=== PATIENT | male | born 1980 | race Caucasian/White ===

== ENCOUNTER 2022-10-23 10:54 | Emergency (ER) | payer BC ==
[2022-10-23] MEDS ORDERED: Sodium Chloride 0.9% 10 ML Syringe FLUSH PRN (10:59)
[2022-10-23] MEDS ORDERED: Sodium Chloride 0.9% 1,000 ML IV ONE (10:59)
[2022-10-23] MEDS ORDERED: Sodium Chloride 0.9% 2.5 ML Syringe FLUSH PRN (10:59)
[2022-10-23 11:58] LABS: CORONAVIRUS COVID-19 NAA POSITIVE (NEGATIVE); INFLUENZA A NAA NEGATIVE (NEGATIVE); INFLUENZA B NAA NEGATIVE (NEGATIVE)
[2022-10-23 12:46] LABS: BLOOD UREA NITROGEN,BUN 16 mg/dL (7.0-18.0); CARBON DIOXIDE,CO2 29.9 mmol/L (21.0-32.0); CHLORIDE,CL 108 mmol/L (98-107); GLUCOSE RANDOM 97 mg/dL (74-106); POTASSIUM,K 4.6 mmol/L (3.5-5.1); SODIUM,NA 141 mmol/L (136-148)
[2022-10-23 12:49] LABS: ESTIMATED GFR 96 mL/min (>60)
== END 2022-10-23 13:16 | disposition home or self-care (01) ==
LOC: MW.ED 10:54
DX: U07.1 COVID-19 (principal); R55 Syncope and collapse
CPT/HCPCS: 0240U; 36415; 71045; 80053; 84484; 85025; 93005; 96360; 99284; J3490; J7030

== ENCOUNTER → 2025-05-06 | Day surgery (SDC) | payer BC ==
[~2025-05-06] MED LIST: Lactated Ringers 1,000 ML IV SCH
== END ==
LOC: MW.SDS 10:20
PROVIDERS: ATTEND Surgery
DX: Z12.11 Encounter for screening for malignant neoplasm of colon (principal); Z53.8 Procedure and treatment not carried out for other reasons; F17.210 Nicotine dependence, cigarettes, uncomplicated

== ENCOUNTER 2025-07-27 12:07 | Day surgery (SDC) | payer BC ==
[2025-07-27] MEDS ORDERED: propofoL 500 MG/50 ML 50 ML ONE (12:26)
[2025-07-27] MEDS: Lactated Ringers 1,000 ML IV SCH (12:44)
== END 2025-07-27 15:00 | disposition home or self-care (01) ==
LOC: MW.SDS 12:07
PROVIDERS: ATTEND Surgery
DX: R19.7 Diarrhea, unspecified (principal); F17.210 Nicotine dependence, cigarettes, uncomplicated; Z79.899 Other long term (current) drug therapy
CPT/HCPCS: 45380; J2003; J2704; J7120; 00811

== ENCOUNTER 2025-08-01 22:37 | Emergency (ER) | payer BC ==
[2025-08-01] MEDS: Lactated Ringers 1,000 ML IV ONE (22:39)
[2025-08-01] MEDS ORDERED: Sodium Chloride 0.9% 2.5 ML Syringe FLUSH PRN (22:48)
[2025-08-01] MEDS ORDERED: Sodium Chloride 0.9% 10 ML Syringe FLUSH PRN (22:48)
[2025-08-01] MEDS: propofoL 1,000 MG/100 ML 100 ML IV SCH (22:59)
[2025-08-01] MEDS: Rocuronium 100 MG/10 ML MDV IVPUSH ONE (23:08)
[2025-08-01] MEDS: Etomidate 2 MG/ML 20 ML SDV IVPUSH ONE (23:08)
[2025-08-01 23:15] LABS: APPEARANCE,URINE CLEAR; GLUCOSE,URINE NEGATIVE (NEGATIVE); OCCULT BLOOD,URINE NEGATIVE (NEGATIVE)
[2025-08-01 23:24] LABS: AMPHETAMINES SCREEN, URINE NEGATIVE (CUTOFF=500); BUPRENORPHINE SCREEN,URINE NEGATIVE (CUTOFF=10); METHADONE SCREEN, URINE NEGATIVE (CUTOFF=200); METHAMPHETAMINES SCREEN, URINE NEGATIVE (CUTOFF=500); OXYCODONE SCREEN,URINE NEGATIVE (CUT0FF=100); PCP SCREEN,URINE NEGATIVE (CUTOFF=25); THC SCREEN,URINE 20 NG/ML NEGATIVE (CUTOFF=50)
[2025-08-01 23:26] LABS: BASOPHILS ABSOLUTE AUTO 0.06 K/uL (0.00-0.20); BASOPHILS PERCENT AUTO 0.4 % (0.0-1.0); EOSINOPHILS ABSOLUTE AUTO 0.02 K/uL (0.00-0.45); EOSINOPHILS PERCENT AUTO 0.1 % (0.0-6.0); IMMATURE GRAN ABSOLUTE AUTO 0.03 K/uL (0.00-0.05); IMMATURE GRAN PERCENT AUTO 0.2 % (0.0-0.4); LYMPHOCYTES ABSOLUTE AUTO 4.14 K/uL (1.00-4.80); LYMPHOCYTES PERCENT AUTO 26.8 % (24.0-44.0); MEAN PLATELET VOLUME 10.5 fL (9.4-12.4); MONOCYTES ABSOLUTE AUTO 1.18 K/uL (0.00-0.80); MONOCYTES PERCENT AUTO 7.7 % (0.0-8.0); NEUTROPHILS ABSOLUTE AUTO 9.99 K/uL (1.80-7.70); NEUTROPHILS PERCENT AUTO 64.8 % (41.0-71.0); NRBC ABSOLUTE 0.00 K/uL (0.00-0.02); NRBC PERCENT 0.0 /100WBC (0.0-0.2); PLATELET COUNT,PLT 318 K/uL (150-400); RED BLOOD CELL COUNT 5.12 M/uL (4.52-5.90); WHITE BLOOD CELL COUNT,WBC 15.42 K/uL (3.9-11.3)
[2025-08-01 23:28] LABS: BASE EXCESS VENOUS 1.1 (-2.0-3.0); BICARBONATE,VENOUS 20.0 mEq/L (22-29); PCO2 VENOUS 21.0 mmHG (41-51); PH,VENOUS 7.59 (7.32-7.43); PO2 VENOUS 63.0 mmHG (35-45)
[2025-08-01 23:29] LABS: LACTIC ACID 6.4 mmol/L (0.4-2.0)
[2025-08-01 23:32] LABS: INR 1.02 (0.86-1.11)
[2025-08-01] MEDS: Propofol 200 MG/20 ML SDV IVPUSH ONE (23:38)
[2025-08-01 23:41] LABS: A/G RATIO 1.1 (0.9-1.6); ALANINE AMINOTRANSFERASE,ALT 44 IU/L (14-63); ASPARTATE AMNIOTRANSFERASE,AST 25 IU/L (15-37); BILIRUBIN TOTAL 0.6 mg/dL (0.2-1.0); BLOOD UREA NITROGEN,BUN 13 mg/dL (7.0-18.0); CARBON DIOXIDE,CO2 19.6 mmol/L (21.0-32.0); CHLORIDE,CL 99 mmol/L (98-107); CREATINE KINASE,CK 97 U/L (26-308); CREATININE 1.3 mg/dL (0.8-1.3); ETHANOL BLOOD MEDICAL 156 mg/dL; GLUCOSE RANDOM 110 mg/dL (74-106); POTASSIUM,K 3.6 mmol/L (3.5-5.1); PROTEIN TOTAL,TP 7.5 g/dL (6.4-8.2); SODIUM,NA 139 mmol/L (136-148)
[2025-08-01] MEDS: Midazolam HCl In 0.9 % NaCl/Pf 100 ML IV SCH (23:45)
[2025-08-01] MEDS ORDERED: Midazolam HCl In 0.9 % NaCl/Pf 100 ML IV SCH (23:45)
[2025-08-01 23:47] LABS: ESTIMATED GFR 69 mL/min (>60)
[2025-08-02 07:47] LABS: MEAN PLATELET VOLUME 10.0 fL (9.4-12.4); NRBC ABSOLUTE 0.00 K/uL (0.00-0.02); NRBC PERCENT 0.0 /100WBC (0.0-0.2); PLATELET COUNT,PLT 292 K/uL (150-400); RED BLOOD CELL COUNT 4.75 M/uL (4.52-5.90); WHITE BLOOD CELL COUNT,WBC 16.00 K/uL (3.9-11.3)
[2025-08-02 07:58] LABS: BASE EXCESS VENOUS 0.8 (-2.0-3.0); BICARBONATE,VENOUS 27.0 mEq/L (22-29); PCO2 VENOUS 48.0 mmHG (41-51); PH,VENOUS 7.36 (7.32-7.43); PO2 VENOUS 79.0 mmHG (35-45)
[2025-08-02 08:11] LABS: LYMPHOCYTES ABSOLUTE MAN 1.12 K/uL (1.00-4.80); LYMPHOCYTES PERCENT MAN 7 % (24-44); MONOCYTES ABSOLUTE MAN 1.28 K/uL (0.00-0.80); MONOCYTES PERCENT MAN 8 % (0-8); SEG NEUTROPHILS ABSOLUTE MAN 13.60 K/uL (1.80-7.70); SEG NEUTROPHILS PERCENT MAN 85 % (41-71)
[2025-08-02 08:17] LABS: A/G RATIO 1.1 (0.9-1.6); ALANINE AMINOTRANSFERASE,ALT 40 IU/L (14-63); ASPARTATE AMNIOTRANSFERASE,AST 22 IU/L (15-37); BILIRUBIN TOTAL 0.6 mg/dL (0.2-1.0); BLOOD UREA NITROGEN,BUN 15 mg/dL (7.0-18.0); CARBON DIOXIDE,CO2 27.9 mmol/L (21.0-32.0); CHLORIDE,CL 102 mmol/L (98-107); CREATINE KINASE,CK 195 U/L (26-308); CREATININE 1.2 mg/dL (0.8-1.3); GLUCOSE RANDOM 101 mg/dL (74-106); POTASSIUM,K 4.7 mmol/L (3.5-5.1); PROTEIN TOTAL,TP 7.0 g/dL (6.4-8.2); SODIUM,NA 139 mmol/L (136-148)
[2025-08-02 08:18] LABS: ESTIMATED GFR 76 mL/min (>60)
[2025-08-02] MEDS: Iopamidol 755 MG/ML 500 ML Multipack Bottle IVPUSH STA (08:47)
== END 2025-08-02 11:28 ==
LOC: MW.ED 22:37
DX: F16.20 Hallucinogen dependence, uncomplicated (principal); Z79.899 Other long term (current) drug therapy
CPT/HCPCS: 31500; 36415; 51702; 70450; 70490; 71045; 71275; 72125; 80053; 80143; 80179; 80305; 80307; 81003; 82550; 82803; 82947; 83605; 83690; 83735; 83880; 84484; 85025; 85610; 87086; 93005; 96361; 96365; 96366; 96368; 99291; 99292; J2251; J2704; J3490; J7030; J7120; Q9967; 99284